=== PATIENT | male | born 1980 ===

== ENCOUNTER 2017-02-15 14:41 | Inpatient (IN) | payer OTHER ==
[2017-02-15] MEDS ORDERED: Sodium Chloride 0.9% 1,000 ML IV STA ×2 (15:18→18:43)
[2017-02-15] MEDS ORDERED: Iohexol 240 (50 ml) PO ONE (15:18)
--- NOTE | 2017-02-15 15:19 | ED PDOC ---
HPI: Abdomen Time Seen by Provider: 02/15/17 15:10 Chief Complaint (Nursing): Abdominal Pain Chief Complaint (Provider): Abdominal Pain History Per: Patient History/Exam Limitations: no limitations Onset/Duration Of Symptoms: Days (x5), Persistent, Worse Since (onset) Current Symptoms Are (Timing): Still Present Severity: Moderate Location Of Pain/Discomfort: LUQ, LLQ, Periumbilical Quality Of Discomfort: Other (tightness) Associated Symptoms: denies: Fever, Chills, Nausea, Vomiting, Diarrhea, Back Pain Exacerbating Factors: None Alleviating Factors: OTC Meds (motrin with mild, transient relief) Additional Complaint(s): Rory Parikh is a 36 year old male, with no pertinent past medical history, who presents to the ED on 02/15/17, accompanied by his , for the evaluation of a moderate amount of periumbilical/left-sided abdominal pain that he has experienced over the past 5 days. Pain, further described as constant and worse since onset, has been mildly radiating into his back/rigbs and is only mildly/ transiently relieved with Motrin, prompting ED visit. Patient reports having initially been evaluated at [facility] for this issue 2 days ago, but that he had been discharged home with instructions to continue taking Motrin 800mg Q8H after both bloodwork and urine studies returned as negative. Denies fever, rash, nausea, vomiting, diarrhea, dysuria, additional back pain or testicular pain. No known allergies or recent dietary changes. PMD: none Past Medical History Reviewed: Historical Data, Nursing Documentation, Vital Signs Vital Signs: Last Vital Signs Temp 97.9 F 02/15/17 14:42 Pulse 87 02/15/17 14:42 Resp 16 02/15/17 14:42 BP 140/93 H 02/15/17 14:42 Pulse Ox 99 02/15/17 15:29 - Medical History PMH: No Chronic Diseases - Surgical History Surgical History: No Surg Hx - Family History Family History: States: Unknown Family Hx - Living Arrangements Living Arrangements: With Family - Social History Current smoker - smoking cessation education provided: Yes (occasional) Alcohol: Social Drugs: Denies - Immunization History Hx Tetanus Toxoid Vaccination: No Hx Influenza Vaccination: No Hx Pneumococcal Vaccination: No - Home Medications Home Medications: Ambulatory Orders Medication Instructions Recorded No Known Home Med 02/15/17 - Allergies Allergies/Adverse Reactions: Allergies Allergy/AdvReac Type Severity Reaction Status Date / Time No Known Allergies Allergy Verified 02/15/17 14:48 Review of Systems ROS Statement: Except As Marked, All Systems Reviewed And Found Negative Constitutional: Negative for: Fever Gastrointestinal: Positive for: Abdominal Pain (periumbilical, LUQ, LLQ w/mild radiation to back). Negative for: Nausea, Vomiting, Diarrhea Genitourinary Male: Negative for: Dysuria, Hematuria, Other (no testicular pain) Skin: Negative for: Rash Physical Exam - Reviewed Nursing Documentation Reviewed: Yes Vital Signs Reviewed: Yes - Physical Exam Appears: Positive for: Non-toxic, No Acute Distress Head Exam: Positive for: ATRAUMATIC, NORMOCEPHALIC Skin: Positive for: Normal Color, Warm, Dry Eye Exam: Positive for: Normal appearance, PERRL Neck: Positive for: Normal, Painless ROM, Supple Cardiovascular/Chest: Positive for: Regular Rate, Rhythm, Chest Non Tender. Negative for: Murmur Respiratory: Positive for: Normal Breath Sounds. Negative for: Respiratory Distress Gastrointestinal/Abdominal: Positive for: Soft, Tenderness (periumbilical/LLQ). Negative for: Mass, Guarding, Rebound Back: Positive for: Normal Inspection. Negative for: Vertebral Tenderness Extremity: Positive for: Normal ROM. Negative for: Swelling Neurologic/Psych: Positive for: Alert, Oriented - Laboratory Results Result Diagrams: 02/15/17 15:00 02/15/17 15:00 - ECG O2 Sat by Pulse Oximetry: 99 (RA) Pulse Ox Interpretation: Normal Medical Decision Making Medical Decision Makin:10 Initial Impression: abdominal pain Initial Plan: * CT A/P w/PO and IV contrast * Labs * Lipase * Udip * IV NS 1000ml at 1000mls/hr * Toradol 30mg IV * Pepcid 20mg IVP * Reevaluation 15:18 Patient will be placed within ED Observation secondary to time-extensive ED workup, see Obs note for further updates. Scribe Attestation: Documented by Linette Pollock, acting as a scribe for Paddy Robles MD. Provider Scribe Attestation: All medical record entries made by the Scribe were at my direction and personally dictated by me. I have reviewed the chart and agree that the record accurately reflects my personal performance of the history, physical exam, medical decision making, and the department course for this patient. I have also personally directed, reviewed, and agree with the discharge instructions and disposition. ED OBSERVATION Date of observation admission: 02/15/17 Time of observation admission: 15:18 - Observation admission statement Patient is being placed in observation because:: Secondary to time-extensive ED workup. - Goals of Observation Goals of observation are:: Pending results of imaging/lab studies as well as reevaluation and final disposition. 1700: Dr. Josh ambriz on labs and imaging. Disposition - Clinical Impression Clinical Impression: Abdominal pain - Disposition Disposition Time: 17:00 Condition: STABLE
[2017-02-15] MEDS ORDERED: Iohexol 240 (50 ml) ONE (15:23)
[2017-02-15 15:44] LABS: BASO % 0.2 % (0.0-2.0); EOS # 0.1 K/uL (0.0-0.7); EOS % 1.1 % (0.0-4.0); HEMATOCRIT 45.9 % (35.0-51.0); LYMPH # 1.7 K/uL (1.0-4.3); LYMPH % 17.8 % (20.0-40.0); MEAN CELL VOLUME 92.2 fl (80.0-94.0); MEAN CORPUSCULAR HEMOGLOBIN 30.3 pg (27.0-31.0); MEAN CORPUSCULAR HGB CONC 32.9 g/dL (33.0-37.0); MEAN PLATELET VOLUME 7.7 fl (7.2-11.7); MONO # 0.6 K/uL (0.0-0.8); MONO % 6.7 % (0.0-10.0); NEUT % 74.2 % (50.0-75.0); NRBC % 0.1 % (0.0-0.0); RED CELL DISTRIBUTION WIDTH 13.9 % (11.5-14.5); WHITE BLOOD COUNT 9.4 K/uL (4.8-10.8)
[2017-02-15 15:47] LABS: ALB/GLOB RATIO 1.1 (1.0-2.1); ALKALINE PHOSPHATASE 82 U/L (38-126); ALT/SGPT 45 U/L (21-72); AST/SGOT 22 U/L (17-59); BILIRUBIN,TOTAL 0.4 mg/dl (0.2-1.3); BLOOD UREA NITROGEN 17 mg/dl (9-20); CALCIUM 9.2 mg/dL (8.4-10.2); CARBON DIOXIDE 25 mmol/L (22-30); CHLORIDE 105 mmol/L (98-107); GFR AFRICAN-AMERICAN > 60; GLUCOSE,RANDOM 110 mg/dL (75-110); LIPASE 265 U/L (23-300); POTASSIUM 4.2 MMOL/L (3.6-5.0); SODIUM 137 mmol/l (132-148); TOTAL PROTEIN 7.9 G/DL (6.3-8.2)
[2017-02-15] MEDS ORDERED: Sodium Chloride 0.9% 50 ML IV ONE (17:01)
[2017-02-15] MEDS ORDERED: Iohexol 300 100 ML IJ ONE (17:01)
--- NOTE | 2017-02-15 17:07 | ED PDOC ---
- Laboratory Results Result Diagrams: 02/15/17 15:00 02/15/17 15:00 - ECG O2 Sat by Pulse Oximetry: 99 (RA) - CT Scan/US CT A/P w/PO and IV contrast Other Rad Studies (CT/US): Read By Radiologist, Radiology Report Reviewed Other Rad Interpretation: see Obs note Medical Decision Making Medical Decision Making: Per CT abdomen and physical findings patient has acute pancreatitis with no lipase elevation. Discussed with GI fellow who recommends admission for IVF and NPO. Scribe Attestation: Documented by Linette Pollock, acting as a scribe for Jace Kimble MD. Provider Scribe Attestation: All medical record entries made by the Scribe were at my direction and personally dictated by me. I have reviewed the chart and agree that the record accurately reflects my personal performance of the history, physical exam, medical decision making, and the department course for this patient. I have also personally directed, reviewed, and agree with the discharge instructions and disposition. Disposition Discussed With : Ivan Flor Counseled Patient/Family Regarding: Studies Performed, Diagnosis - Clinical Impression Clinical Impression: Abdominal pain, Acute pancreatitis - POA Present On Arrival: None - Disposition Disposition: Admitted as In-Patient Disposition Time: 18:52 Condition: STABLE ED OBSERVATION Date of observation admission: 02/15/17 Time of observation admission: 15:18 - Observation admission statement Patient is being placed in observation because:: See previous note. - Goals of Observation Goals of observation are:: See previous note. - Progress Note Progress Note: 02/15/17 17:[address] Robles. Pending CT abdomen and final disposition. 02/15/17 18:17 CT A/P report reviewed: FINDINGS: LOWER THORAX: No visible consolidation, pleural effusion, or pneumothorax. LIVER: Mild hypoattenuation of the liver compatible with hepatic steatosis. GALLBLADDER AND BILE DUCTS: Unremarkable. PANCREAS: Mild peripancreatic inflammatory stranding evident at the body/ tail junction. SPLEEN: Unremarkable. ADRENALS: Unremarkable. KIDNEYS AND URETERS: The kidneys enhance symmetrically. No hydronephrosis or obstructing renal calculus. BLADDER: The urinary bladder appears unremarkable. REPRODUCTIVE: Unremarkable. APPENDIX: The appendix appears within normal limits of caliber. No secondary signs of acute appendicitis. BOWEL: The stomach is nondistended. The bowel loops appear within normal limits of caliber without evidence of intestinal obstruction. PERITONEUM: No significant free fluid. No definite free air. LYMPH NODES: No bulky lymphadenopathy identified. VASCULATURE: No aortic aneurysm. BONES: No acute osseous abnormality is detected. OTHER FINDINGS: Right sided gynecomastia. Bilateral fat containing inguinal hernias. IMPRESSION: Mild peripancreatic inflammatory stranding evident at the body/ tail junction. Correlate clinically for acute pancreatitis including amylase and lipase. Hepatic steatosis. Right-sided gynecomastia.
--- NOTE | 2017-02-15 18:18 | CT ---
PROCEDURE: CT Abdomen and Pelvis with oral and IV contrast. HISTORY: abd pain COMPARISON: None available. TECHNIQUE: Contiguous axial images of the abdomen and pelvis. Oral and IV contrast was administered. Coronal and Sagittal reformats generated and reviewed. Contrast dose: 95 cc Omnipaque 300 Radiation dose: Total exam DLP = 1189.75 mGy-cm. FINDINGS: LOWER THORAX: No visible consolidation, pleural effusion, or pneumothorax. LIVER: Mild hypoattenuation of the liver compatible with hepatic steatosis. GALLBLADDER AND BILE DUCTS: Unremarkable. PANCREAS: Mild peripancreatic inflammatory stranding evident at the body/ tail junction. SPLEEN: Unremarkable. ADRENALS: Unremarkable. KIDNEYS AND URETERS: The kidneys enhance symmetrically. No hydronephrosis or obstructing renal calculus. BLADDER: The urinary bladder appears unremarkable. REPRODUCTIVE: Unremarkable. APPENDIX: The appendix appears within normal limits of caliber. No secondary signs of acute appendicitis. BOWEL: The stomach is nondistended. The bowel loops appear within normal limits of caliber without evidence of intestinal obstruction. PERITONEUM: No significant free fluid. No definite free air. LYMPH NODES: No bulky lymphadenopathy identified. VASCULATURE: No aortic aneurysm. BONES: No acute osseous abnormality is detected. OTHER FINDINGS: Right sided gynecomastia. Bilateral fat containing inguinal hernias. IMPRESSION: Mild peripancreatic inflammatory stranding evident at the body/ tail junction. Correlate clinically for acute pancreatitis including amylase and lipase. Hepatic steatosis. Right-sided gynecomastia.
--- NOTE | 2017-02-15 20:12 | CP.PCM.HP ---
History of Present Illness - History of Present Illness History of Present Illness: 36 y/o male with no PMH presented to ER complaining or LUQ abdominal pain for the past 5 days , sharp,radiatig to th eback with no associated nausea, vomiting , improving with pain medication like Motrin and Ultram temporarily .He denies any prior similar episodes . 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 The pain started on Tuesday night after drinking and lasted through the weekend with no improvement. He was seen at [facility] on Tuesday night for abdominal pain and discharged home after couple of hours on Motrin PRN for pain. Today he decided to come to Er for eval since the pain is not improving. Denies any VCP, SOB, palpitations, diarrhea, nausea, vomiting, fever , chills . Ct abdomen showed Mild peripancreatic inflammatory stranding evident at the body / tail junction. Correlate clinically for acute pancreatitis including amylase and lipase. Hepatic steatosis. Right-sided gynecomastia. Allergies ; NKDA PMH; None Medications; Motrin PRN, tramadol Surgery : none Family history ; sister has bone marrow Ca Social history ;Lives in [facility] 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 Present on Admission - Present on Admission Any Indicators Present on Admission: No Review of Systems - Review of Systems All systems: reviewed and no additional remarkable complaints except Past Patient History - Infectious Disease Hx of Infectious Diseases: None - Tetanus Immunizations Tetanus Immunization: Unknown - Past Medical History & Family History Past Medical History?: No Past Family History: Reviewed and not pertinent - Past Social History Smoking Status: Light Smoker < 10 Cigarettes Daily Chewing Tobacco Use: No Cigar Use: No Alcohol: > 2 Drinks/Day Drugs: Cannabis Home Situation {Lives}: With Family Domestic Violence: Negative - PSYCHIATRIC Hx Substance Use: No - SURGICAL HISTORY Hx Surgeries: No - ANESTHESIA Hx Anesthesia: No Meds Allergies/Adverse Reactions: Allergies Allergy/AdvReac Type Severity Reaction Status Date / Time No Known Allergies Allergy Verified 02/15/17 14:48 Physical Exam - Constitutional Appears: Non-toxic, No Acute Distress - Head Exam Head Exam: ATRAUMATIC, NORMAL INSPECTION, NORMOCEPHALIC - Eye Exam Eye Exam: EOMI, Normal appearance, PERRL Pupil Exam: NORMAL ACCOMODATION - ENT Exam ENT Exam: Mucous Membranes Moist, Normal Exam - Neck Exam Neck exam: Positive for: Full Rom, Normal Inspection - Respiratory Exam Respiratory Exam: Clear to Auscultation Bilateral, NORMAL BREATHING PATTERN. absent: Rales, Rhonchi, Wheezes - Cardiovascular Exam Cardiovascular Exam: REGULAR RHYTHM, RRR, +S1, +S2. absent: JVD - GI/Abdominal Exam GI & Abdominal Exam: Normal Bowel Sounds, Soft. absent: Distended, Guarding, Rebound, Tenderness - Rectal Exam Rectal Exam: Deferred - Extremities Exam Extremities exam: Positive for: normal capillary refill, normal inspection, pedal pulses present. Negative for: calf tenderness, pedal edema - Back Exam Back exam: NORMAL INSPECTION - Neurological Exam Neurological exam: Alert, CN II-XII Intact, Oriented x3, Reflexes Normal - Psychiatric Exam Psychiatric exam: Normal Affect, Normal Mood - Skin Skin Exam: Dry, Intact, Normal Color, Warm Results - Vital Signs Recent Vital Signs: Last Vital Signs Temp 98.2 F 02/15/17 19:32 Pulse 67 02/15/17 19:32 Resp 16 02/15/17 19:32 BP 139/88 02/15/17 19:32 Pulse Ox 100 02/15/17 19:32 - Labs Result Diagrams: 02/15/17 15:00 02/15/17 15:00 - Imaging and Cardiology CT scan - abdomen Additional comment: Mild peripancreatic inflammatory stranding evident at the body/ tail junction. Correlate clinically for acute pancreatitis including amylase and lipase. Hepatic steatosis. Right-sided gynecomastia. Assessment & Plan - Assessment and Plan (Free Text) Assessment: 36 y/o male with no PMH presented to ER complaining or LUQ abdominal pain for the past 5 days , sharp,radiatig to [facility] with no associated nausea, vomiting , improving with pain medication like Motrin and Ultram temporarily .He denies any prior similar episodes . 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 The pain started on Tuesday night after drinking and lasted through the weekend with no improvement. He was seen at [facility] on Tuesday night for abdominal pain and discharged home after couple of hours on Motrin PRN for pain. Today he decided to come to Er for eval since the pain is not improving. Denies any VCP, SOB, palpitations, diarrhea, nausea, vomiting, fever , chills . Ct abdomen showed Mild peripancreatic inflammatory stranding evident at the body / tail junction. Correlate clinically for acute pancreatitis including amylase and lipase. Hepatic steatosis. Right-sided gynecomastia. 1. Acute pancreatitis -- most likley related to ETOH abuse Lipase - wnl but Ct abdomen positive for peripancreatic stranding will place patient under observation in med/surg start IVF, pain management Patient denies any pain, nausea or vomiting at present. Will strat low fat diet Repeat Lipase in AM Gi eval with Dr. Cole Check lipid profile, UDOA,ETOH levels 2.Heaptic Steatosis Most likley related to EOH abuse 3. ETOH dependence counselled patient no signs of withdrawal 4. Right Gynecomastia Will need further eval as outpatient 5. DVt prophylaxis SCD
[2017-02-15] MEDS: Sodium Chloride 0.9% 1,000 ML IV SCH (21:58)
[2017-02-16 07:03] LABS: HEMATOCRIT 43.6 % (35.0-51.0); MEAN CELL VOLUME 91.8 fl (80.0-94.0); MEAN CORPUSCULAR HEMOGLOBIN 30.8 pg (27.0-31.0); MEAN CORPUSCULAR HGB CONC 33.6 g/dL (33.0-37.0); RED CELL DISTRIBUTION WIDTH 13.8 % (11.5-14.5); WHITE BLOOD COUNT 8.1 K/uL (4.8-10.8)
[2017-02-16 07:14] LABS: BLOOD UREA NITROGEN 11 mg/dl (9-20); CALCIUM 8.8 mg/dL (8.4-10.2); CARBON DIOXIDE 24 mmol/L (22-30); CHLORIDE 107 mmol/L (98-107); CHOLESTEROL 147 mg/dL (0-199); GFR AFRICAN-AMERICAN > 60; GLUCOSE,RANDOM 105 mg/dL (75-110); LIPASE 248 U/L (23-300); POTASSIUM 4.2 MMOL/L (3.6-5.0); SODIUM 137 mmol/l (132-148)
[2017-02-16] MEDS: Pantoprazole 40 mg EC Tab PO SCH (08:49)
[2017-02-16] MEDS: Sodium Chloride 0.9% 1,000 ML IV SCH ×3 (08:50→23:38)
--- NOTE | 2017-02-16 16:04 | CP.PCM.PN ---
Subjective - Date & Time of Evaluation Date of Evaluation: 02/16/17 Time of Evaluation: 15:45 - Subjective Subjective: Hospitalist Propress Note (Patient was seen and examined at 3:45 PM 02/16/17 in 669-2) 36 year old male who was admitted on 02/15/17 for evaluation of 5 day history of LUQ abdominal pain after having alcohol. His CT Abdomen/Pelvis showed mild peripancreatic inflammatory stranding in the body and tail. He was started on IVF and Heart Healthy Diet and GI consult was obtained for further recommendations. Currently patient states that the Abdominal in the Epigastric Area (this is where he points to) comes and goes and is sharp in nature. It occurred after his breakfast of pakistani toast and after eating a bannana. NO nausea/vomiting. He moved his bowels this morning and there was NO black/bloody stools. NO chest pain, NO palpitations, NO SOB/Cough/Wheezing, NO dysphagia/odynophagia, NO burning/pain withe urination (however at times feels bladder pressure), NO lightheadedness/dizziness, NO new changes in vision/eye pain, NO new changes in hearing/ear pain, NO edema, NO paresthesias HEENT: EOMI, PERRLA, NO cervical lymphadenopathy, NO thyromegaly, NO pharyngeal erythema/exudate, Oral Mucosa and Nasal Turbinates are moist Cardio: NS1 and NS2, NO M/R/G Respiratory: CTA B/L, NO R/R/W GI: BS x 4, Soft, Central Obesity, NO HSM, (+) Epigastric Tenderness to deep palpation (increased pressure and soreness) but NO guarding/rebound tenderness Ext: NO edema, Capillary Refill is 2 seconds, Pulses are strong and equal Neuro: CN II through XII are grossly intact 1). Pancreatitis IVF NS at 100 ml/hr Change diet to Clear Liquids for now as patient is still pain with pain with regular heart healthy diet For Abdominal U/S later today to R/O Gallstones GI Dr. Basurto help is appreciated Toradol 30 mg IV Q6H PRN Severe Pain Toradol 15 mg IV Q6H PRN Moderate Pain Tylenol 650 mg PO Q6H PRN Mild Pain Protonix 40 mg PO 1x/day Zofran 4 mg IV Q6H PRN N/V If the patient tolerates advancement of diet by lunch tomorrow, then will discharge patient if the U/S Abdomen is unremarkable Patient was again counseled on his Alcohol intake as I explained to him that this can cuase Pancreatitis 2). Hepatic Steatosis As seen on CT Abdomen/Pelvis Patient will need to work on losing weight and diet 3). 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 I explained to him that this may be too much for him. 4). Right Gynecomastia As seen on CT Abdomen/Plevis This will have to be followed up as an outpatient. 5). Prophylaxis Protonix as above B/L SCDs F/U AM 02/17/17 CMP and Lipase Objective - Vital Signs/Intake and Output Vital Signs (last 24 hours): Temp Pulse Resp BP Pulse Ox 97.6 F 53 L 18 135/86 99 02/16/17 08:10 02/16/17 08:10 02/16/17 08:10 02/16/17 08:10 02/16/17 08:10 - Medications Medications: Current Medications Acetaminophen (Tylenol 325mg Tab) 650 mg PO Q6 PRN PRN Reason: Pain, Mild (1-3) Last Admin: 02/16/17 02:42 Dose: 650 mg Acetaminophen (Tylenol 325mg Tab) 650 mg PO Q6 PRN PRN Reason: Fever >100.4 F Sodium Chloride (Sodium Chloride 0.9%) 1,000 mls @ 100 mls/hr IV .Q10H [facility] Last Admin: 02/16/17 08:50 Dose: 100 mls/hr Ketorolac Tromethamine (Toradol) 30 mg IVP Q6 PRN PRN Reason: Pain, severe (8-10) Last Admin: 02/16/17 15:52 Dose: 30 mg Ketorolac Tromethamine (Toradol) 15 mg IVP Q6 PRN PRN Reason: Pain, moderate (4-7) Ondansetron HCl (Zofran Inj) 4 mg IVP Q6 PRN PRN Reason: Nausea/Vomiting Pantoprazole Sodium (Protonix Ec Tab) 40 mg PO DAILY [facility] Last Admin: 02/16/17 08:49 Dose: 40 mg - Labs Labs: 02/16/17 06:15 02/16/17 06:15
--- NOTE | 2017-02-16 16:33 | CP.PCM.CON ---
History of Present Illness - History of Present Illness History of Present Illness: CC: Abdominal pain HPI: 36 year old male who presents with abdominal pain. The pain started last tuesday, is LUQ, radiating to the back, severe. He has never had this before. He was seen in ED at [facility], normal labs and given nsaids and sent home. Returned to this hospital with persistent pain. Denies nausea, vomiting, bleeding, fever, chest pain, sob, or weight loss. No prior h/o gallstones or high cholesterol. 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 PMHx none PSHx none FHx no family h.o GI disease SHx - drinks daily 6 oz, denies smoking/drugs ROS A comprehensive review of systems was performed and was negative apart from HPI. Past Patient History - Infectious Disease Hx of Infectious Diseases: None - Tetanus Immunizations Tetanus Immunization: Unknown - Past Medical History & Family History Past Medical History?: No - Past Social History Smoking Status: Light Smoker < 10 Cigarettes Daily - CARDIAC Hx Cardiac Disorders: No - PULMONARY Hx Respiratory Disorders: No - NEUROLOGICAL Hx Neurological Disorder: No - HEENT Hx HEENT Problems: No - RENAL Hx Chronic Kidney Disease: No - ENDOCRINE/METABOLIC Hx Endocrine Disorders: No - HEMATOLOGICAL/ONCOLOGICAL Hx AIDS: No Hx Human Immunodeficiency Virus (HIV): No - INTEGUMENTARY Hx Dermatological Problems: No - MUSCULOSKELETAL/RHEUMATOLOGICAL Hx Falls: No - GASTROINTESTINAL Hx Gastrointestinal Disorders: No - GENITOURINARY/GYNECOLOGICAL Hx Genitourinary Disorders: No - PSYCHIATRIC Hx Substance Use: Yes (cannabis) - SURGICAL HISTORY Hx Surgeries: No - ANESTHESIA Hx Anesthesia: No Meds Allergies/Adverse Reactions: Allergies Allergy/AdvReac Type Severity Reaction Status Date / Time No Known Allergies Allergy Verified 02/15/17 14:48 - Medications Medications: Current Medications Acetaminophen (Tylenol 325mg Tab) 650 mg PO Q6 PRN PRN Reason: Pain, Mild (1-3) Last Admin: 02/16/17 02:42 Dose: 650 mg Acetaminophen (Tylenol 325mg Tab) 650 mg PO Q6 PRN PRN Reason: Fever >100.4 F Sodium Chloride (Sodium Chloride 0.9%) 1,000 mls @ 100 mls/hr IV .Q10H [facility] Last Admin: 02/16/17 08:50 Dose: 100 mls/hr Ketorolac Tromethamine (Toradol) 30 mg IVP Q6 PRN PRN Reason: Pain, severe (8-10) Last Admin: 02/16/17 15:52 Dose: 30 mg Ketorolac Tromethamine (Toradol) 15 mg IVP Q6 PRN PRN Reason: Pain, moderate (4-7) Ondansetron HCl (Zofran Inj) 4 mg IVP Q6 PRN PRN Reason: Nausea/Vomiting Pantoprazole Sodium (Protonix Ec Tab) 40 mg PO DAILY [facility] Last Admin: 02/16/17 08:49 Dose: 40 mg Physical Exam - Constitutional Appears: Well, No Acute Distress - Head Exam Head Exam: ATRAUMATIC, NORMOCEPHALIC - Eye Exam Eye Exam: Normal appearance. absent: Scleral icterus - ENT Exam ENT Exam: Mucous Membranes Moist, Normal Oropharynx - Neck Exam Neck exam: Negative for: Lymphadenopathy, Thyromegaly - Respiratory Exam Respiratory Exam: NORMAL BREATHING PATTERN. absent: Wheezes, Respiratory Distress - Cardiovascular Exam Cardiovascular Exam: REGULAR RHYTHM, +S1, +S2 - GI/Abdominal Exam GI & Abdominal Exam: Soft. absent: Distended, Guarding, Tenderness - Extremities Exam Extremities exam: Positive for: normal capillary refill. Negative for: pedal edema - Neurological Exam Neurological exam: Alert, Oriented x3 - Psychiatric Exam Psychiatric exam: Normal Affect, Normal Mood - Skin Skin Exam: Dry, Warm Results - Vital Signs Recent Vital Signs: Last Vital Signs Temp 97.6 F 02/16/17 08:10 Pulse 53 L 02/16/17 08:10 Resp 18 02/16/17 08:10 BP 135/86 02/16/17 08:10 Pulse Ox 99 02/16/17 08:10 - Labs Result Diagrams: 02/16/17 06:15 02/16/17 06:15 Labs: Laboratory Results - last 24 hr 02/15/17 02/15/17 02/16/17 23:44 23:55 06:15 WBC 8.1 RBC 4.75 Hgb 14.7 Hct 43.6 MCV 91.8 MCH 30.8 MCHC 33.6 RDW 13.8 Plt Count 298 Sodium 137 Potassium 4.2 Chloride 107 Carbon Dioxide 24 Anion Gap 10 BUN 11 Creatinine 1.0 Est GFR ( Amer) > 60 Est GFR (Non-Af Amer) > 60 Random Glucose 105 Calcium 8.8 Triglycerides 75 Cholesterol 147 LDL Cholesterol Direct 87 HDL Cholesterol 39 Lipase 248 Urine Opiates Screen Positive H Urine Methadone Screen Negative Ur Barbiturates Screen Negative Ur Phencyclidine Scrn Negative Ur Amphetamines Screen Negative U Benzodiazepines Scrn Negative U Oth Cocaine Metabols Negative U Cannabinoids Screen Positive H Alcohol, Quantitative < 10 Assessment & Plan - Assessment and Plan (Free Text) Assessment: 36 year old male who presents with abdominal pain, normal lipase, but CT evidence of pancreatitis. 1. Acute pancreatitis Plan -mild pancreatitis based on CT scan -normal lipase -supportive care -low fat diet -pain control -normal triglycerides -check abdominal US to r/o gallstones -etoh history raises the possibilty of chronic pancreatitis -consider outpatient EGD/EUS for further evaluation - Date & Time Date: 02/16/17 Time: 16:33
--- NOTE | 2017-02-16 17:02 | US ---
HISTORY: pancreatitis, r/o gallstones COMPARISON: February 15, 2017. CT abdomen and pelvis. TECHNIQUE: Sonographic evaluation of the abdomen. FINDINGS: LIVER: Measures 16.9 cm. Patent portal vein. Portal venous flow: Hepatopetal. Variable echogenicity of the liver parenchyma. No mass. No intrahepatic bile duct dilatation. GALLBLADDER: Unremarkable. No gallstones. COMMON BILE DUCT: Measures 4.2 mm. No stones. No dilatation. PANCREAS: Obscured by overlying bowel gas. Non diagnostic assessment of pancreas. RIGHT KIDNEY: Measures 5.4 x 10.9cm. Normal echogenicity. No calculus, mass, or hydronephrosis. LEFT KIDNEY: Measures 6.5 x 11cm. Normal echogenicity. No calculus, mass, or hydronephrosis. SPLEEN: Normal in size and contour. No mass. AORTA: No aneurysmal dilatation. IVC: Unremarkable. OTHER FINDINGS: None. IMPRESSION: No significant or acute findings to account for/ related to the clinical presentation. Limitations of the current examination: Nondiagnostic study of the pancreas.
[2017-02-16 17:14] VITALS: RESP 20
[2017-02-17] MEDS: Sodium Chloride 0.9% 1,000 ML IV SCH (02:45)
[2017-02-17 07:14] LABS: ALKALINE PHOSPHATASE 81 U/L (38-126); ALT/SGPT 51 U/L (21-72); AST/SGOT 33 U/L (17-59); BILIRUBIN,TOTAL 0.7 mg/dl (0.2-1.3); BLOOD UREA NITROGEN 10 mg/dl (9-20); CALCIUM 9.2 mg/dL (8.4-10.2); CARBON DIOXIDE 22 mmol/L (22-30); CHLORIDE 107 mmol/L (98-107); GFR AFRICAN-AMERICAN > 60; GLUCOSE,RANDOM 108 mg/dL (75-110); LIPASE 326 U/L (23-300); POTASSIUM 3.9 MMOL/L (3.6-5.0); SODIUM 137 mmol/l (132-148); TOTAL PROTEIN 7.9 G/DL (6.3-8.2)
[2017-02-17] MEDS: Pantoprazole 40 mg EC Tab PO SCH (08:13)
[2017-02-17 08:34] VITALS: BP 148/95; PULSE 55; TEMP 98.7; O2SAT 99
--- NOTE | 2017-02-17 10:09 | CP.PCM.PN ---
Subjective - Date & Time of Evaluation Date of Evaluation: 02/17/17 Time of Evaluation: 09:00 - Subjective Subjective: Patient seen at bedside. Tolerating clear liquid diet. Denies nausea, vomiting and abdominal pain. Objective - Vital Signs/Intake and Output Vital Signs (last 24 hours): Temp Pulse Resp BP Pulse Ox 98.7 F 55 L 20 148/95 H 99 02/17/17 08:33 02/17/17 08:33 02/17/17 08:33 02/17/17 08:33 02/17/17 08:33 - Medications Medications: Current Medications Acetaminophen (Tylenol 325mg Tab) 650 mg PO Q6 PRN PRN Reason: Pain, Mild (1-3) Last Admin: 02/16/17 02:42 Dose: 650 mg Acetaminophen (Tylenol 325mg Tab) 650 mg PO Q6 PRN PRN Reason: Fever >100.4 F Sodium Chloride (Sodium Chloride 0.9%) 1,000 mls @ 100 mls/hr IV .Q10H [facility] Last Admin: 02/17/17 02:45 Dose: Not Given Ketorolac Tromethamine (Toradol) 30 mg IVP Q6 PRN PRN Reason: Pain, severe (8-10) Last Admin: 02/17/17 08:09 Dose: 30 mg Ketorolac Tromethamine (Toradol) 15 mg IVP Q6 PRN PRN Reason: Pain, moderate (4-7) Ondansetron HCl (Zofran Inj) 4 mg IVP Q6 PRN PRN Reason: Nausea/Vomiting Pantoprazole Sodium (Protonix Ec Tab) 40 mg PO DAILY [facility] Last Admin: 02/17/17 08:13 Dose: 40 mg - Labs Labs: 02/17/17 06:25 - Constitutional Appears: Well, Non-toxic, No Acute Distress - Head Exam Head Exam: ATRAUMATIC, NORMAL INSPECTION, NORMOCEPHALIC - Eye Exam Eye Exam: Normal appearance - ENT Exam ENT Exam: Mucous Membranes Moist - Respiratory Exam Respiratory Exam: Clear to Ausculation Bilateral, NORMAL BREATHING PATTERN - Cardiovascular Exam Cardiovascular Exam: REGULAR RHYTHM, +S1, +S2. absent: Murmur - GI/Abdominal Exam GI & Abdominal Exam: Soft, Normal Bowel Sounds. absent: Tenderness Additional comments: No rebound. No guarding - Extremities Exam Extremities Exam: Full ROM, Normal Capillary Refill, Normal Inspection. absent : Joint Swelling, Pedal Edema - Neurological Exam Neurological Exam: Alert, Awake, CN II-XII Intact, Normal Gait, Oriented x3 - Psychiatric Exam Psychiatric exam: Normal Affect, Normal Mood Assessment and Plan - Assessment and Plan (Free Text) Assessment: 36 year old male who presents with abdominal pain, normal lipase, but CT evidence of pancreatitis now resolved clinically. 1. Acute pancreatitis Plan -supportive care -low fat diet -normal triglycerides -etoh history raises the possibilty of chronic pancreatitis -consider outpatient EGD/EUS for further evaluation - Patient can be discharged
--- NOTE | 2017-02-17 10:17 | CP.PCM.DIS ---
Provider - Provider Date of Admission: 02/16/17 18:49 Attending physician: Ivan Flor MD Primary care physician: None Consults: JENNIFER Cole Time Spent in preparation of Discharge (in minutes): 40 Hospital Course - Lab Results Lab Results: Most Recent Lab Values WBC 8.1 K/uL (4.8-10.8) 02/16/17 06:15 RBC 4.75 Mil/uL (4.40-5.90) 02/16/17 06:15 Hgb 14.7 g/dL (12.0-18.0) 02/16/17 06:15 Hct 43.6 % (35.0-51.0) 02/16/17 06:15 MCV 91.8 fl (80.0-94.0) 02/16/17 06:15 MCH 30.8 pg (27.0-31.0) 02/16/17 06:15 MCHC 33.6 g/dL (33.0-37.0) 02/16/17 06:15 RDW 13.8 % (11.5-14.5) 02/16/17 06:15 Plt Count 298 K/uL (130-400) 02/16/17 06:15 MPV 7.7 fl (7.2-11.7) 02/15/17 15:00 Neut % (Auto) 74.2 % (50.0-75.0) 02/15/17 15:00 Lymph % (Auto) 17.8 % (20.0-40.0) L 02/15/17 15:00 [place] % (Auto) 6.7 % (0.0-10.0) 02/15/17 15:00 Eos % (Auto) 1.1 % (0.0-4.0) 02/15/17 15:00 Baso % (Auto) 0.2 % (0.0-2.0) 02/15/17 15:00 Neut # 7.0 K/uL (1.8-7.0) 02/15/17 15:00 Lymph # 1.7 K/uL (1.0-4.3) 02/15/17 15:00 [place] # 0.6 K/uL (0.0-0.8) 02/15/17 15:00 Eos # 0.1 K/uL (0.0-0.7) 02/15/17 15:00 Baso # 0.0 K/uL (0.0-0.2) 02/15/17 15:00 Sodium 137 mmol/l (132-148) 02/17/17 06:25 Potassium 3.9 MMOL/L (3.6-5.0) 02/17/17 06:25 Chloride 107 mmol/L (98-107) 02/17/17 06:25 Carbon Dioxide 22 mmol/L (22-30) 02/17/17 06:25 Anion Gap 12 (10-20) 02/17/17 06:25 BUN 10 mg/dl (9-20) 02/17/17 06:25 Creatinine 0.9 mg/dL (0.8-1.5) 02/17/17 06:25 Est GFR ( Amer) > 60 02/17/17 06:25 Est GFR (Non-Af Amer) > 60 02/17/17 06:25 Random Glucose 108 mg/dL (75-110) 02/17/17 06:25 Calcium 9.2 mg/dL (8.4-10.2) 02/17/17 06:25 Total Bilirubin 0.7 mg/dl (0.2-1.3) 02/17/17 06:25 AST 33 U/L (17-59) 02/17/17 06:25 ALT 51 U/L (21-72) 02/17/17 06:25 Alkaline Phosphatase 81 U/L (38-126) 02/17/17 06:25 Total Protein 7.9 G/DL (6.3-8.2) 02/17/17 06:25 Albumin 4.0 g/dL (3.5-5.0) 02/17/17 06:25 Globulin 3.9 gm/dL (2.2-3.9) 02/17/17 06:25 Albumin/Globulin Ratio 1.0 (1.0-2.1) 02/17/17 06:25 Triglycerides 75 mg/DL (0-149) 02/16/17 06:15 Cholesterol 147 mg/dL (0-199) 02/16/17 06:15 LDL Cholesterol Direct 87 mg/dL (0-129) 02/16/17 06:15 HDL Cholesterol 39 MG/DL (30-70) 02/16/17 06:15 Lipase 326 U/L (23-300) H 02/17/17 06:25 Urine Opiates Screen Positive (NEGATIVE) H 02/15/17 23:55 Urine Methadone Screen Negative (NEGATIVE) 02/15/17 23:55 Ur Barbiturates Screen Negative (NEGATIVE) 02/15/17 23:55 Ur Phencyclidine Scrn Negative (NEGATIVE) 02/15/17 23:55 Ur Amphetamines Screen Negative (NEGATIVE) 02/15/17 23:55 U Benzodiazepines Scrn Negative (NEGATIVE) 02/15/17 23:55 U Oth Cocaine Metabols Negative (NEGATIVE) 02/15/17 23:55 U Cannabinoids Screen Positive (NEGATIVE) H 02/15/17 23:55 Alcohol, Quantitative < 10 mg/dl (0-10) 02/15/17 23:44 - Hospital Course Hospital Course: Hospitalist Propress Note (Patient was seen and examined at 10:00 AM 02/17/17 in 669-2) 36 year old male who was admitted on 02/15/17 for evaluation of 5 day history of LUQ abdominal pain after having alcohol. His CT Abdomen/Pelvis showed mild peripancreatic inflammatory stranding in the body and tail. His U/S Abdomen did NOT show any Gallstones. He was started on IVF and Heart Healthy Diet. He did initially tolerate the Heart Health Diet as he experienced epigastric pain afterwards. Therefore his diet was changed to clear liquids for dinner 02/16/17 and to soft for breakfast 02/17/17 both which he tolerated. He will receive dietary consultation for low fat diet considering the Steatosis of the Liver and then will be discharged to home. Currently patient states that the Abdominal in the Epigastric Area comes and goes and is now more of a soreness that did not require any pain medication ( with last use at around 9 PM on the night of 02/16/17) . NO nausea/vomiting. He moved his bowels this morning and there was NO black/bloody stools. NO chest pain, NO palpitations, NO SOB/Cough/Wheezing, NO dysphagia/odynophagia, NO burning/pain withe urination, NO lightheadedness/dizziness, NO new changes in vision/eye pain, NO new changes in hearing/ear pain, NO edema, NO paresthesias HEENT: EOMI, PERRLA, NO cervical lymphadenopathy, NO thyromegaly, NO pharyngeal erythema/exudate, Oral Mucosa and Nasal Turbinates are moist Cardio: NS1 and NS2, NO M/R/G Respiratory: CTA B/L, NO R/R/W GI: BS x 4, Soft, Central Obesity, NO HSM, NO pain with palpation of all 4 quadrants and NO guarding/rebound tenderness Ext: NO edema, Capillary Refill is 2 seconds, Pulses are strong and equal Neuro: CN II through XII are grossly intact 1). Pancreatitis 2). Hepatic Steatosis 3). ETOH 4). Right Gynecomastia The following instructions were explained to patient and copy of this document was provided to him: 1). Advance your diet slowly and as tolerated. If there is pain with solid foods then go back down to soft foods. 2). Stay well hydrated with water. 3). Stay away from alcohol. 4). You have a fatty liver. Therefore follow a low fat diet as instructed by the environmental health officer. You must also get at least 30 minutes of cardiovascular exercise 5 times per week. This is as simple as walking at a brisk sustained pace around a track or your neighborhood for 30 minutes. 5). You must obtain a primary care physician. Please call the [facility] here in [place] at [phone] for an appointment to take place in the next 7 to 10 days. You will need follow up of your Pancreatitis, Fatty Liver, and Breast Enlargement as well as coordination of your health care. This is important for you to do so please do not delay as doing so will have detrimental effects to your health. Bring a copy of this document with you to your scheduled appointment with the [facility]. 6). If severe pain in the abdomen returns please return to the Emergency Room. Jony Renee D.O. Discharge Exam - Head Exam Head Exam: ATRAUMATIC, NORMAL INSPECTION, NORMOCEPHALIC Discharge Plan - Follow Up Plan Condition: STABLE Disposition: HOME/ ROUTINE Instructions: Pancreatitis (DC)
== END 2017-02-17 12:43 | disposition home or self-care (01) | DRG 204 ==
LOC: H.ER 14:41 → H.EROBSV 15:18 → INTOOBSV 18:49 → OBSVTOIN 18:49 → H.ERHOLD 18:51 → H.MEDSURG1 20:52 → OBSVTOIN 02-16 18:49
PROVIDERS: ADMIT Hospitalist; ATTEND Hospitalist
DX: K85.20 Alcohol induced acute pancreatitis without necrosis or infection (principal); K76.0 Fatty (change of) liver, not elsewhere classified; N62 Hypertrophy of breast; F10.20 Alcohol dependence, uncomplicated; Y90.0 Blood alcohol level of less than 20 mg/100 ml; F17.200 Nicotine dependence, unspecified, uncomplicated